=== PATIENT | male | born 1990 | race African-American/Black ===

== ENCOUNTER 2019-09-07 21:18 | Emergency (ER) | payer MEDICAID ==
[~2019-09-07] VITALS: Ht 182.9 cm; Wt 82.0 kg
[2019-09-07 21:40] VITALS: BP 145/74
[2019-09-08] MEDS ORDERED: TETANUS, DIPHTHERIA, PERTUSSIS VAC/PF 0.5ML (>7YR OLD) IM ONE (00:15)
[2019-09-08] MEDS ORDERED: LIDOCAINE HCL 1% 20ML VIAL (Pyxis) INJ INFIL ONE (00:15)
[2019-09-08] MEDS ORDERED: BACITRACIN ZINC OINT UDPKT TOP NR (00:15)
[2019-09-08] MEDS ORDERED: ACETAMINOPHEN 500MG TABLET PO NR (00:15)
[2019-09-08] MEDS ORDERED: LIDOCAINE 1%/EPI 1:100,000 10 ML VIAL IJ ONE (00:15)
[2019-09-08] MEDS ORDERED: CEFTRIAXONE SODIUM 1 G/VIAL IM NR (00:15)
[2019-09-08] MEDS ORDERED: LIDOCAINE HCL/EPINEPHRINE 1%-EPI 1:100,000 20 ML VIAL INFIL NR (00:30)
== END 2019-09-08 00:42 | disposition left against medical advice (07) ==
LOC: ER 21:18
DX: S01.81XA Laceration without foreign body of other part of head, initial encounter (principal); S05.11XA Contusion of eyeball and orbital tissues, right eye, initial encounter; X58.XXXA Exposure to other specified factors, initial encounter; Y93.89 Activity, other specified; Y92.89 Other specified places as the place of occurrence of the external cause; Y99.8 Other external cause status
CPT/HCPCS: 99281; J3490